=== PATIENT | male | born 1980 | race Caucasian/White ===

== ENCOUNTER 2018-10-09 13:13 | Day surgery (SDC) | payer BC ==
[2018-10-09] MEDS ORDERED: LIDOCAINE 2% MDV (20MG/ML) 20ML VIAL IV ONE (13:14)
[2018-10-09] MEDS ORDERED: PROPOFOL 10 MG/ML VIAL IV ONE (13:14)
[2018-10-09] MEDS ORDERED: MIDAZOLAM HCL 2MG/2ML VIAL IV ONE (13:14)
--- NOTE | 2018-10-10 11:21 | Operative Note ---
OPERATION: COLONOSCOPY. PREOPERATIVE DIAGNOSIS: Family history of colon cancer in second-degree relative at a young age. POSTOPERATIVE DIAGNOSIS: Normal exam. PROCEDURE: After informed consent was obtained from the patient, he was placed in the left lateral decubitus position in the endoscopy suite, sedated and monitored by the department of anesthesia. Digital rectal exam was unremarkable. A well-lubricated [id number] colonoscope was inserted into the rectum and advanced to the cecum. The cecum, cecal bulb, ileocecal valve, appendiceal orifice, ascending colon, transverse colon, descending colon, sigmoid colon, and rectum were free of inflammatory changes, mass lesions, or polyps. Forward and J-turn views of the rectum and anorectum were unremarkable. The endoscope was straightened, the rectal ampulla deflated, and the endoscope was removed. RECOMMENDATIONS: I suggest that the patient undergo repeat colonoscopy in 10 years. As always, thank you for allowing me to participate in the healthcare of your patients. SETH
== END 2018-10-09 14:25 | disposition home or self-care (01) ==
LOC: HOP 13:13
PROVIDERS: ATTEND Internal Medicine Gastroenterology
DX: Z12.11 Encounter for screening for malignant neoplasm of colon (principal); Z80.0 Family history of malignant neoplasm of digestive organs
CPT/HCPCS: 00812; G0105